=== PATIENT | female | born 1965 | race Caucasian/White ===

== ENCOUNTER 2017-05-22 20:50 | Observation (INO) | payer OTHER ==
[2017-05-22] MEDS ORDERED: Ondansetron HCl/PF 4 MG/2 ML Vial ONE (21:21)
[2017-05-22 21:34] LABS: #Basophils 0.1 thou/uL (0.0-0.2); #Eosinphils 0.2 thou/uL (0.0-0.7); #Lymphocytes 3.3 thou/uL (1.20-3.40); #Monocytes 0.6 thou/uL (0.11-0.59); #Neutrophils 5.1 thou/uL (1.40-6.50); %Basophils 0.7 % (0.0-1.0); %Lymphocytes 35.8 % (21.0-51.0); %Monocytes 6.4 % (0.0-10.0); Hematocrit 47.4 % (36.0-47.0); Mean Platelet Volume 7.4 fL (7.4-10.4); Red Blood Cell (RBC) Count 5.49 mill/uL (4.20-5.40); White Blood Cell (WBC) Count 9.3 thou/uL (4.8-10.8)
[2017-05-22 21:39] LABS: PTT 72.8 SEC (22.9-36.1)
[2017-05-22 21:47] LABS: ALT (SGPT) 28 U/L (8-55); AST (SGOT) 21 U/L (5-34); Alkaline Phosphatase 62 U/L (40-150); Anion Gap 17 mmol/L (10-20); BUN (Urea Nitrogen) 13 mg/dL (9.8-20.1); Bilirubin, Total 0.4 mg/dL (0.2-1.2); Calc. Creatinine Clearance 0 mL/min (70-130); Carbon Dioxide 24 mmol/L (22-29); Chloride 102 mmol/L (98-107); Estimated GFR-MDRD 87; Globulin 3.3 g/dL (2.4-3.5); Magnesium 1.8 mg/dL (1.6-2.6); Protein, Total 7.7 g/dL (6.0-8.3)
[2017-05-22 21:48] LABS: Troponin I 0.017 ng/mL (< 0.028)
--- NOTE | 2017-05-22 22:02 | RAD ---
CHEST ONE VIEW 05/22/17 HISTORY: Chest pain. COMPARISON: 07/03/13. FINDINGS: The cardiac silhouette is magnified by projection. Pulmonary vasculature is unremarkable. Mediastinum is midline. There is no lobar consolidation or evidence of pneumothorax. IMPRESSION: No active cardiopulmonary abnormalities are demonstrated. POS: [facility]
--- NOTE | 2017-05-22 23:16 | CT ---
CT ARTERIOGRAM CHEST WITH IV CONTRAST AND 3D MIP IMAGING 05/22/17 HISTORY: Chest pain. Dyspnea. FINDINGS: There is good contrast opacification of pulmonary arteries and thoracic aorta with normal branching o f the great vessels. Minimal atelectasis is present at the lung bases. There is no lobar consolidatio n, pneumothorax or mediastinal adenopathy visible. IMPRESSION: No CT evidence of pulmonary embolus. POS: [facility]
[2017-05-23 00:45] LABS: Troponin I Less than 0.010 ng/mL (< 0.028)
[2017-05-23] MEDS ORDERED: Acetaminophen 325 MG TAB PO PRN ×2 (01:34→02:48)
[2017-05-23] MEDS ORDERED: Dextrose 5% in Water 1,000 ML IV PRN (02:48)
[2017-05-23] MEDS ORDERED: Dextrose 50% Abboject 50 ML SYRINGE SLOW IVP PRN (02:48)
[2017-05-23] MEDS ORDERED: HYDROcodone/Acetaminophen 10/325 mg Tablet PO PRN (02:48)
[2017-05-23] MEDS ORDERED: HYDROcodone/Acetaminophen 5/325 mg Tablet PO PRN (02:48)
[2017-05-23] MEDS ORDERED: HumaLOG 300 UNITS/3 ML VIAL SC PRN (02:48)
[2017-05-23 02:54] VITALS: BMI 27.7
[2017-05-23 03:20] LABS: #Eosinphils 0.1 thou/uL (0.0-0.7); #Lymphocytes 2.6 thou/uL (1.20-3.40); #Monocytes 0.6 thou/uL (0.11-0.59); #Neutrophils 5.4 thou/uL (1.40-6.50); %Basophils 0.2 % (0.0-1.0); %Eosinophils 1.4 % (0.0-10.0); %Lymphocytes 29.7 % (21.0-51.0); %Monocytes 6.4 % (0.0-10.0); Mean Platelet Volume 7.5 fL (7.4-10.4); Red Blood Cell (RBC) Count 4.91 mill/uL (4.20-5.40); White Blood Cell (WBC) Count 8.7 thou/uL (4.8-10.8)
[2017-05-23 03:38] LABS: Anion Gap 10 mmol/L (10-20); BUN (Urea Nitrogen) 10 mg/dL (9.8-20.1); Calc. Creatinine Clearance 114 mL/min (70-130); Calcium 9.4 mg/dL (7.8-10.44); Carbon Dioxide 30 mmol/L (22-29); Chloride 103 mmol/L (98-107); Estimated GFR-MDRD Greater than 90; Hemoglobin A1c 8.1 % (4.0-6.0)
[2017-05-23 03:44] LABS: Troponin I Less than 0.010 ng/mL (< 0.028)
[2017-05-23 03:45] LABS: Troponin I Less than 0.010 ng/mL (< 0.028)
[2017-05-23] MEDS: Ondansetron HCl/PF 4 MG/2 ML Vial IVP PRN ×2 (04:41→09:22)
[2017-05-23] MEDS ORDERED: ADENOSINE 60 MG/20 ML VIAL ONE ×2 (04:47→17:24)
--- NOTE | 2017-05-23 06:16 | HP ---
DATE OF AMDISSION: 05/23/2017 CHIEF COMPLAINT: Chest pain, shortness of breath and indigestion. HISTORY OF PRESENT ILLNESS: Ms. Potter is a pleasant 52-year-old female with a history of JAZMIN posit nya connective tissue disease, she thinks rheumatoid arthritis, diabetes mellitus, recently diagnosed under metformin and hyperlipidemia, who last evening was at rest after just arriving back home after running some errands and developed some chest tightness, indigestion and belching, with nausea. She did not vomit. No known exacerbating or alleviating factors, though belching seemed to make it some what better. The patient describes being "dizzy," which she further elaborated as being feeling of b eing off balance or disequilibrium without feeling vertiginous or herself spinning. She developed so me cold sweats when she got nauseated and presented to the outside Emergency Department, [facility] ER. She describes the pain in her chest as being a heavy pressure. It seemed to radiate t o a sharp pain in her back. There, she had a negative troponin, D-dimer was mildly elevated at 0.45, so a CT angiogram was done t hat was negative. BNP was negative and labs were fairly normal, so she was sent here for rule out. PAST MEDICAL HISTORY: 1. Diabetes mellitus type 2, on metformin. 2. Hyperlipidemia, mostly triglycerides. 3. Prolonged aPTT. 4. Anxiety. 5. JAZMIN positive, she thinks rheumatoid arthritis. PAST SURGICAL HISTORY: 1. Tonsillectomy. 2. Back surgery in 1999. HOME MEDICATIONS: 1. Metformin 1 gram p.o. b.i.d. 2. Amitriptyline 10 mg p.o. q.a.m. and 20 mg p.o. q.p.m. 3. Singulair 10 mg p.o. b.i.d. for allergies. 4. Effexor 150 mg p.o. at bedtime. 5. Celebrex 100 mg p.o. daily. 6. Dexilant 40 mg p.o. at bedtime. 7. Pravastatin, dose unknown. ALLERGIES: 1. PENICILLIN. 2. LEVOFLOXACIN. FAMILY HISTORY: Significant for blood clots in her multiple sides of the family and multiple members , her dad and paternal grandfather both had MIs around age of 50. SOCIAL HISTORY: Negative for habits x3. She is and lives with family. REVIEW OF SYSTEMS: A 10-point review of systems was performed, negative for all other systems except stated as per HPI. PHYSICAL EXAMINATION: VITAL SIGNS: Temperature 97.8, pulse 73, blood pressure 138/67, respiratory rate 18, satting 96% on room air. GENERAL: She is awake. She is alert. She is oriented x3. She is a well-developed, well-nourished, white female, appears to be in no acute distress. HEENT: Head is normocephalic and atraumatic. Pupils equal, round and reactive to light bilaterally, mucous membranes are moist. There are no visible lesions and no thrush. NECK: Supple, without lymphadenopathy, JVD, or thyromegaly. She has normal carotid upstroke. LUNGS: Clear to auscultation bilaterally without wheezes, rales or rhonchi. She has good air moveme nt. Symmetrical chest excursion. There are no wheezes, rales or rhonchi or prolonged expiratory pha se. CARDIOVASCULAR: Normal S1, S2, no S3 or S4. No audible murmurs. ABDOMEN: Soft, it is nontender, nondistended with normoactive bowel sounds present in all 4 quadrant s. Slightly tympanitic, but not distended. She has no rebound, rigidity or guarding. EXTREMITIES: No cyanosis, no clubbing, no edema. A 2+ peripheral pulses in dorsalis pedis and poste rior tibial arteries. SKIN: Warm, moist, and well perfused without any other rashes or lesions. MUSCULOSKELETAL: Normal to inspection. She has no inflamed joints and no palpable effusions. NEUROLOGIC: Cranial nerves II through XII are grossly intact without any focal neurologic deficit. She has normal speech pattern and 5/5 strength. LABORATORY DATA AND X-RAY FINDINGS: CMP showed a sodium of 140, potassium 3.4, chloride 102, bicarbo rosa isela 24, BUN 19, creatinine 0.70, and glucose 141. Liver functions were normal. Her CBC showed a wh ite count of 9.3, hemoglobin 15.8, hematocrit of 47.4, platelet count 263. D-dimer was 0.45 and aPTT 72.8. BNP was undetectable. CK-MB of 1.2 and troponin I was 0.017. Chest x-ray showed no acute ca rdiopulmonary disease. CT angiogram negative for pulmonary emboli or pulmonary consolidation. ASSESSMENT AND PLAN: 1. Chest pain accompanied by nausea, sweats. Certainly has risk factors for heart disease including diabetes, hyperlipidemia. We will get serial cardiac biomarkers, after talking with her and having the other neurologic type symptoms, it seems most likely be cardiac in origin. I have decided not to put her on beta damian or nitro paste at present. We will continue on daily aspirin. We will get serial cardiac biomarkers. If these remain negative, then I have scheduled a nuclear stress test for this morning. 2. Diabetes mellitus type 2, on metformin. We will hold that for now. We will use sliding scale in sulin for correction. 3. Hyperlipidemia on pravastatin. The patient will get as a dose and we will continue. 4. History of prolonged aPTT: Stable at present. 5. Anxiety, on amitriptyline and Dexilant. 6. Dizziness: The patient feels off balance or disequilibrium. She has no other neurologic finding s whatsoever. We will watch her sugars closely and make sure this is not related to hypoglycemia.
[2017-05-23] MEDS ORDERED: Enoxaparin Sodium 40 MG/0.4 ML SYRINGE SC SCH (09:00)
[2017-05-23] MEDS ORDERED: Aspirin 325 MG TAB PO SCH (09:00)
[2017-05-23] MEDS ORDERED: Ondansetron HCl/PF 4 MG/2 ML Vial IVP PRN (11:10)
[2017-05-23] MEDS: Famotidine 20 MG TAB PO SCH ×2 (11:35→12:03)
[2017-05-23 12:06] VITALS: BP 137/75; TEMP 98.3
--- NOTE | 2017-05-23 12:41 | DIS ---
DATE OF ADMISSION: 05/22/2017 DATE OF DISCHARGE: 05/23/2017 DISPOSITION: Discharged to home. PRIMARY CARE PROVIDER: Puneet Crawford M.D. DISCHARGE DIAGNOSES: Chest pain, anxiety disorder, diabetes mellitus type 2, dyslipidemia. DISCHARGE MEDICATIONS: Same as her home medicines, metformin 1000 mg twice a day, Effexor XR 150 mg at bedtime, Pravachol 40 mg a day, Singulair 10 mg a day, Dexilant 60 mg a day, Celebrex 50 mg twice a day p.r.n., amitriptyline 20 mg at bedtime, 10 mg in the morning. ALLERGIES: PENICILLIN, QUINOLONES, SHELLFISH. CODE STATUS: FULL. PENDING AT THE TIME OF DISCHARGE: Nothing. HOSPITAL COURSE: The patient admitted to the emergency room with chest pain, shortness of breath, in digestion, described being dizzy, some disequilibrium. D-dimer was elevated at 0.45. CT scan was ne gative. Serial cardiac enzymes were normal. EKG was normal. Nuclear medicine cardiac stress test i s normal. This has been discussed with her. She is being discharged to follow up with her PCP in 7 days. She has been instructed to continue her home medicines. CONSULTS: None. PROCEDURES: None.
--- NOTE | 2017-05-23 15:24 | NM ---
MYOCARDIAL PERFUSION STUDY: DATE: 05/23/17. HISTORY: Chest pain. RADIOPHARMACEUTICALS: 32 mCi Technetium 99m sestamibi, IV at stress, and 9 mCi Technetium 99m sestamibi, IV at rest. MEDICATIONS: 13.6 mL (40.9 mg) adenosine, IV. FINDINGS: There is normal uptake and distribution of radiotracer seen throughout the left ventricular myocardiu m on both the resting and stress acquisitions. No reversible defect is identified. Quantitative harmony lysis shows no significant reversible defect. Rotated planar images demonstrated breast attenuation. Gated images show normal ventricular wall motion and wall thickening. The calculated left ventricu lar ejection fraction is 69%. IMPRESSION: 1. Normal myocardial perfusion study without evidence of a reversible defect seen to suggest ischemi a. 2. Normal left ventricular function with normal left ventricular ejection fraction of 69%. POS: [facility]
[2017-05-23] MEDS ORDERED: Montelukast Sodium 10 mg Tablet PO SCH (21:00)
[2017-05-23] MEDS ORDERED: Venlafaxine HCl XR 150 MG CAP PO SCH (21:00)
[2017-05-23] MEDS ORDERED: Amitriptyline HCl 10 MG TAB PO SCH (21:00)
[2017-05-23] MEDS ORDERED: Atorvastatin Calcium 10 MG TAB PO SCH (21:00)
[2017-05-24] MEDS ORDERED: Amitriptyline HCl 10 MG TAB PO SCH (09:00)
== END 2017-05-23 15:43 | disposition home or self-care (01) ==
LOC: SCSER 20:50 → 2SW 23:32
PROVIDERS: ADMIT Internal Medicine Infectious Disease; ATTEND Internal Medicine Infectious Disease
DX: R07.9 Chest pain, unspecified (principal); F41.9 Anxiety disorder, unspecified; E11.9 Type 2 diabetes mellitus without complications; E78.5 Hyperlipidemia, unspecified; M35.9 Systemic involvement of connective tissue, unspecified; K30 Functional dyspepsia; R42 Dizziness and giddiness; Z79.84 Long term (current) use of oral hypoglycemic drugs; Z79.899 Other long term (current) drug therapy; Z88.1 Allergy status to other antibiotic agents; Z88.0 Allergy status to penicillin; Z91.013 Allergy to seafood; Z91.040 Latex allergy status; Z90.89 Acquired absence of other organs; Z98.890 Other specified postprocedural states
CPT/HCPCS: 36415; 36416; 71010; 71275; 78452; 80048; 80053; 82553; 83036; 83735; 83880; 84484; 85025; 85379; 85730; 93005; 93017; 96361; 96374; 96376; A9500; G0378; J0153; J2405

== ENCOUNTER 2018-04-19 14:27 | Outpatient (CLI) | payer OTHER ==
--- NOTE | 2018-04-19 17:48 | MRI ---
MRI OF THE CERVICAL SPINE WITHOUT CONTRAST: 04/19/18 INDICATION: History of radiculopathy with pain extending down right arm and shoulder. COMPARISON: Prior MR cervical spine dated 04/19/13. FINDINGS: The visualized aspects of the posterior fossa appear within normal limits. Bone signal intensity appe ars within normal limits. At C2-3, there is no appreciable central canal or neural foraminal narrowing. There is mild facet sanya nt degenerative change which is stable to the prior exam. At C3-4, there is a mild broad based bulge causing some mild ventral effacement of the subarachnoid s pace without definite cord contact. There is no neural foraminal narrowing demonstrated. At C4-5, there is a broad based bulge with facet joint degenerative change. There is a stable mild an d interval development of new mild left neural foraminal narrowing due to the uncovertebral hypertrop hy at this level. At C5-6, there is a broad based bulge causing some mild effacement of ventral subarachnoid space with out definite cord contact. There is some uncovertebral hypertrophy and facet joint degenerative neville e at this level. There is mild bilateral neural foraminal narrowing, right greater than left. At C6-7, there is a broad based bulge with uncovertebral hypertrophy. This is greater on the right in ducing mild right neural foraminal narrowing which is stable. At C7-T1, there is no appreciable central canal or neural foraminal narrowing. IMPRESSION: Largely stable multilevel spondylosis of the cervical spine. There is slight worsening left neural fo raminal narrowing at C4-5. Otherwise, the mild neural foraminal narrowing seen at multiple levels is stable. POS: [facility]
== END 2018-04-19 14:28 | disposition home or self-care (01) ==
LOC: SCSMRI 14:27
PROVIDERS: ATTEND Family Medicine
DX: M47.22 Other spondylosis with radiculopathy, cervical region (principal); M99.81 Other biomechanical lesions of cervical region
CPT/HCPCS: 72141

== ENCOUNTER 2018-10-27 13:56 | Outpatient (CLI) | payer OTHER ==
--- NOTE | 2018-10-27 14:27 | BD ---
DEXA BONE SCAN: HISTORY: Age-related osteoporosis. FINDINGS: LUMBAR SPINE BMD T-SCORE Z-SCORE L1 0.97 -0.2 0.8 L2 0.93 -0.9 0.2 L3 0.96 -1.2 0.0 L4 0.91 -1.4 -0.2 COMPOSITE 0.94 -1.0 +0.1. LEFT HIP FEMORAL NECK 0.73 -1.0 0.0 COMPOSITE 0.97 0.2 0.9 Findings suggest normal bone mineral density. Transcribed Date/Time: 10/27/2018 2:53 PM
== END 2018-10-27 13:57 | disposition home or self-care (01) ==
LOC: BICMAMMO 13:56
PROVIDERS: ATTEND Allergy & Immunology
DX: Z13.820 Encounter for screening for osteoporosis (principal); M06.9 Rheumatoid arthritis, unspecified
CPT/HCPCS: 77080

== ENCOUNTER 2022-02-09 14:40 | Outpatient (CLI) | payer BC | END 2022-02-09 14:41 | disposition home or self-care (01) | LOC: SCSMRI 14:40 | PROVIDERS: ATTEND Family Medicine | DX: M48.061 Spinal stenosis, lumbar region without neurogenic claudication (principal); M51.26 Other intervertebral disc displacement, lumbar region; M47.26 Other spondylosis with radiculopathy, lumbar region | CPT/HCPCS: 72148 ==

== ENCOUNTER 2024-05-09 12:00 | Outpatient (CLI) | payer BC | END 2024-05-09 12:01 | disposition home or self-care (01) | LOC: SCSRAD 12:00 | PROVIDERS: ATTEND Family Medicine | DX: S99.921A Unspecified injury of right foot, initial encounter (principal); M19.071 Primary osteoarthritis, right ankle and foot; M77.8 Other enthesopathies, not elsewhere classified ==